=== PATIENT | female | born 2000 | race Caucasian/White ===

== ENCOUNTER 2018-01-17 11:39 | Emergency (ER) | payer BC, OTHER ==
[2018-01-17] MEDS ORDERED: WATER STERILE(*) 10 ML VIAL 10 ML ONE (12:28)
[2018-01-17 12:30] VITALS: BP 118/74
[2018-01-17] MEDS ORDERED: AZITHROMYCIN 250 MG TAB PO ONE (13:50)
[2018-01-17] MEDS ORDERED: METRONIDAZOLE 500 MG TABLET PO ONE (13:50)
[2018-01-17] MEDS ORDERED: cefTRIAXone 250 MG VIAL IM ONE (13:50)
[2018-01-17] MEDS ORDERED: LEVONORGESTREL 1.5 MG TAB PO ONE (13:50)
[2018-01-17] MEDS ORDERED: IBUPROFEN 600 MG TAB PO ONE (14:15)
[2018-01-17] MEDS ORDERED: ONDANSETRON 4 MG ODT TABDP SL ONE (14:15)
[2018-01-17] MEDS ORDERED: ETON68IM SQ (16:05)
== END 2018-01-17 15:00 | disposition home or self-care (01) ==
LOC: ER 14:27
DX: T74.21XA Adult sexual abuse, confirmed, initial encounter (principal); R10.2 Pelvic and perineal pain; S30.814A Abrasion of vagina and vulva, initial encounter
CPT/HCPCS: 81025; 96372; 99284; A9270; J0696; Q0144; S0119